=== PATIENT | female | born 1955 | race Caucasian/White ===

== ENCOUNTER 2016-06-16 18:43 | Emergency (ER) | payer MEDICARE ==
--- NOTE | 2016-06-16 20:06 | ED CLINICAL REPORT ---
Clinical Report - Physicians/Mid Levels [facility] [address] [place] [address] 06/16/2016 18:47 Patient: TY MENJIVAR Time Seen: 19:06; initial patient contact, initial documentation, patient care assumed. Arrived- By private vehicle. Historian- patient. HISTORY OF PRESENT ILLNESS Chief Complaint: EYE REDNESS. This started about 2 - 3 weeks ago, involves the right eye and is characterized as moderate in severity. The patient may have sustained an injury. She wears contact lenses. No eye pain, eye discharge, eye itching, eyelid swelling or photophobia. No blurred vision, double vision, decreased vision or loss of vision. Eye redness. ( when trying to get contact out, pinched or scratched eye, blood in eye has gotten worse, went to [facility], dx with sinusitis and periorbital hematoma and sent here for further eval of eye). REVIEW OF SYSTEMS All systems otherwise negative, except as recorded above. PAST HISTORY See nurses notes. The patient wears contact lenses. PROBLEMS: Rheumatoid Arthritis. --19:08 Bessie Suggs R.N. SOCIAL HISTORY Smoker- current status unknown (electronic cigarrette). Occasional alcohol use. History of occasional drug use: marijuana. FAMILY HISTORY No significant family medical history. ADDITIONAL NOTES The nursing notes have been reviewed with agreement regarding the chief complaint, HPI, ROS, PMH and patient medications and allergies. PHYSICAL EXAM Vital Signs: 06/16/2016 19:00 BP: 112/78. HR: 97. RR: 18. O2 saturation: 100%. Have been reviewed as normal and appear to be correct. Appearance: Alert. Oriented X3. No acute distress. HEENT: Ears normal. Nose normal. Pharynx normal. Head appears normal to external inspection. Rt Eye: Right eye exam normal. Single medium sized circular shaped corneal abrasion located centrally and inferiorly (around base of corneal 4-6 oclock position). Fluorescein dye uptake on the cornea. Eyes: Visual acuity noted- see nurse's notes. Right cornea examined with fluorescein stain. Eyelids appear normal to inspection. Conjunctivae and sclerae appear normal to inspection. Corneas do not appear normal to inspection. Pupils equal, round and reactive to light. Accommodation normal. Funduscopic exam normal. Visual briones normal. EOMs intact. Periorbital areas appear normal to inspection. Anterior chambers clear. Anterior chambers of normal depth. Lt Eye: Left eye exam normal. Neck: Neck supple. Normal inspection. Respiratory: No respiratory distress. Skin: No rash. Extremities: Extremities negative. Neuro: Oriented X 3. Mood/affect normal. No motor deficit. No sensory deficit. PROGRESS AND PROCEDURES Patient counseled in person regarding the patient's stable condition and diagnosis. 20:06. Differential Diagnosis: Other possible considerations: fb, corneal abrasion, conjunctivitis, keratitis, hyphema, globe injury. Above considerations are based on history and physical exam. Differential diagnosis was discussed with patient. Disposition: Discharged home in good and improved condition (20:06). Condition: good and stable. CLINICAL IMPRESSION Medium corneal abrasion to the left eye due to contact lens. No foreign body or rust ring. INSTRUCTIONS Warnings: GENERAL WARNINGS: Return or contact your physician immediately if your condition worsens or changes unexpectedly, if not improving as expected, or if other problems arise. Specifically return if problem worsens. Prescription Medications: Garamycin ophthalmic ointment 0.3% : Apply 1/2 inch to inner aspect of the lower lid on the affected eye every 8 hours for 1 week. Dispense three and one half (3.5) gm. No refills. Substitution is permissible. Follow-up: Follow up with an sap mobility architect tomorrow. Call for an appointment. Summary of care provided to patient. Understanding of the discharge instructions verbalized by patient. (Electronically signed by Candice Krishnan A.R.N.P. 06/16/2016 21:07)
--- NOTE | 2016-06-16 20:06 | ED CLINICAL REPORT ---
Clinical Report - Physicians/Mid Levels [facility] [address] [place] [address] 06/16/2016 18:47 Patient: TY MENJIVAR Time Seen: 19:06; initial patient contact, initial documentation, patient care assumed. Arrived- By private vehicle. Historian- patient. HISTORY OF PRESENT ILLNESS Chief Complaint: EYE REDNESS. This started about 2 - 3 weeks ago, involves the right eye and is characterized as moderate in severity. The patient may have sustained an injury. She wears contact lenses. No eye pain, eye discharge, eye itching, eyelid swelling or photophobia. No blurred vision, double vision, decreased vision or loss of vision. Eye redness. ( when trying to get contact out, pinched or scratched eye, blood in eye has gotten worse, [facility], dx with sinusitis and periorbital hematoma and sent here for further eval of eye). REVIEW OF SYSTEMS All systems otherwise negative, except as recorded above. PAST HISTORY See nurses notes. The patient wears contact lenses. PROBLEMS: Rheumatoid Arthritis. --19:08 Bessie Suggs R.N. SOCIAL HISTORY Smoker- current status unknown (electronic cigarrette). Occasional alcohol use. History of occasional drug use: marijuana. FAMILY HISTORY No significant family medical history. ADDITIONAL NOTES The nursing notes have been reviewed with agreement regarding the chief complaint, HPI, ROS, PMH and patient medications and allergies. PHYSICAL EXAM Vital Signs: 06/16/2016 19:00 BP: 112/78. HR: 97. RR: 18. O2 saturation: 100%. Have been reviewed as normal and appear to be correct. Appearance: Alert. Oriented X3. No acute distress. HEENT: Ears normal. Nose normal. Pharynx normal. Head appears normal to external inspection. Rt Eye: Right eye exam normal. Single medium sized circular shaped corneal abrasion located centrally and inferiorly (around base of corneal 4-6 oclock position). Fluorescein dye uptake on the cornea. Eyes: Visual acuity noted- see nurse's notes. Right cornea examined with fluorescein stain. Eyelids appear normal to inspection. Conjunctivae and sclerae appear normal to inspection. Corneas do not appear normal to inspection. Pupils equal, round and reactive to light. Accommodation normal. Funduscopic exam normal. Visual briones normal. EOMs intact. Periorbital areas appear normal to inspection. Anterior chambers clear. Anterior chambers of normal depth. Lt Eye: Left eye exam normal. Neck: Neck supple. Normal inspection. Respiratory: No respiratory distress. Skin: No rash. Extremities: Extremities negative. Neuro: Oriented X 3. Mood/affect normal. No motor deficit. No sensory deficit. PROGRESS AND PROCEDURES Patient counseled in person regarding the patient's stable condition and diagnosis. 20:06. Differential Diagnosis: Other possible considerations: fb, corneal abrasion, conjunctivitis, keratitis, hyphema, globe injury. Above considerations are based on history and physical exam. Differential diagnosis was discussed with patient. Disposition: Discharged home in good and improved condition (20:06). Condition: good and stable. CLINICAL IMPRESSION Medium corneal abrasion to the left eye due to contact lens. No foreign body or rust ring. INSTRUCTIONS Warnings: GENERAL WARNINGS: Return or contact your physician immediately if your condition worsens or changes unexpectedly, if not improving as expected, or if other problems arise. Specifically return if problem worsens. Prescription Medications: Garamycin ophthalmic ointment 0.3% : Apply 1/2 inch to inner aspect of the lower lid on the affected eye every 8 hours for 1 week. Dispense three and one half (3.5) gm. No refills. Substitution is permissible. Follow-up: Follow up with an airplane pilot photogrammetry tomorrow. Call for an appointment. Summary of care provided to patient. Understanding of the discharge instructions verbalized by patient. (Electronically signed by Candice Krishnan A.R.N.P. 06/16/2016 21:07)
--- NOTE | 2016-06-16 20:06 | ED NURSING NOTES ---
Clinical Report - Nurses [facility] [place] [address] [place] [address] 06/16/2016 18:47 Patient: TY MENJIVAR TRIAGE Triage time 19:00 Jun 16 2016. Acuity: LEVEL 4. Chief Complaint: INJURY TO RIGHT EYE. Alert. No acute distress. VISUAL ACUITY: Visual acuity performed with corrective lenses: left eye 20/25; right eye 20/40. --19:11 Bessie Suggs R.N. 19:00 06/16/16. BP: 112/78. HR: 97. RR: 18. O2 saturation: 100%. Pain level now 10. --19:11 Bessie Suggs R.N. Weight: 77.5 kg stated. Height/Length: 65 inches Per Patient. BMI: 28.5. --19:00 Bessie Suggs R.N. Medications OxyCONTIN Oral 30mg , 2x a day. --19:04 Bessie Suggs R.N. Melatonin Oral 10mg, as needed. --19:04 Bessie Suggs R.N. Adderall Oral 30mg (1 tab, TID ER). --19:05 Bessie Suggs R.N. Medication/allergy information source: the patient. --19:11 Bessie Suggs R.N. Allergies Sulfa Antibiotics.(hives) --19:07 Bessie Suggs R.N. History Arrived by private vehicle. Historian: patient. Primary physician ([facility] Adrienne). ( 1.5 week of right eye redness, thinks she may have caused some irritation when taking out her contact, however she has also done some heavy lifting. Concerned if a broken blood vessel or infection. Painful. 10/10.). Onset. (1.5 week). She may have sustained an injury. Treatment ORDERLIES TEACHER: None. SOCIAL HX: Smoker- current status unknown (Vape). Occasional alcohol use. History of drug use: marijuana. NUTRITIONAL RISK ASSESSMENT: The nutritional risk assessment revealed no deficiencies. FUNCTIONAL ASSESSMENT: Functional assessment: no impairments noted. LEARNING NEEDS ASSESSMENT: The learning needs assessment revealed no barriers. SKIN INTEGRITY ASSESSMENT: Skin integrity risk assessment completed. No skin integrity risk identified. --19: Bessie Suggs R.N. PROBLEMS: Rheumatoid Arthritis. --19: Bessie Suggs R.N. Interventions ID band on patient. To room. --: Bessie Suggs R.N. PHYSICAL ASSESSMENT Ambulatory to room. GENERAL / NEURO / PSYCH: Appears in no acute distress. --19: Bessie Suggs R.N. DISPOSITION / DISCHARGE Departure time: 2024. Condition at departure: unchanged. ( eye is still red). No learning barriers present. Discharge instructions provided and reviewed with the patient. Reviewed warnings. Reviewed medication(s). Treatments reviewed. Reviewed referral to an glass installer technician. Patient verbalized understanding. Written instructions provided in Tajik. The patient was discharged by the nurse practitioner. She was discharged home and accompanied by business analytics specialist. She left the Emergency Department ambulatory and via private vehicle. Statistical Reporting Analyst driving. --20:23 Emile Bass R.N. 20:22 06/16/16. BP: 116/75. HR: 91. RR: 15. O2 saturation: 100%. Pain level now 08/10. --20:23 Emile Bass R.N. Locked/Released at 06/16/2016 20:24 by Emile Bass R.N.
--- NOTE | 2016-06-16 20:06 | ED NURSING NOTES ---
Clinical Report - Nurses [facility] [place] [address] 06/16/2016 18:47 Patient: TY MENJIVAR TRIAGE Triage time 19:00 Jun 16 2016. Acuity: LEVEL 4. Chief Complaint: INJURY TO RIGHT EYE. Alert. No acute distress. VISUAL ACUITY: Visual acuity performed with corrective lenses: left eye 20/25; right eye 20/40. --19:11 Bessie Suggs R.N. 19:00 06/16/16. BP: 112/78. HR: 97. RR: 18. O2 saturation: 100%. Pain level now 10. --19:11 Bessie Suggs R.N. Weight: 77.5 kg stated. Height/Length: 65 inches Per Patient. BMI: 28.5. --19:00 Bessie Suggs R.N. Medications OxyCONTIN Oral 30mg , 2x a day. --19:04 Bessie Suggs R.N. Melatonin Oral 10mg, as needed. --19:04 Bessie Suggs R.N. Adderall Oral 30mg (1 tab, TID ER). --19:05 Bessie Suggs R.N. Medication/allergy information source: the patient. --19:11 Bessie Suggs R.N. Allergies Sulfa Antibiotics.(hives) --19:07 Bessie Suggs R.N. History Arrived by private vehicle. Historian: patient. Primary physician (PR[facility] Adrienne). ( 1.5 week of right eye redness, thinks she may have caused some irritation when taking out her contact, however she has also done some heavy lifting. Concerned if a broken blood vessel or infection. Painful. 10/10.). Onset. (1.5 week). She may have sustained an injury. Treatment COMPOSITION ROOFER: None. SOCIAL HX: Smoker- current status unknown (Vape). Occasional alcohol use. History of drug use: marijuana. NUTRITIONAL RISK ASSESSMENT: The nutritional risk assessment revealed no deficiencies. FUNCTIONAL ASSESSMENT: Functional assessment: no impairments noted. LEARNING NEEDS ASSESSMENT: The learning needs assessment revealed no barriers. SKIN INTEGRITY ASSESSMENT: Skin integrity risk assessment completed. No skin integrity risk identified. --19: Bessie Suggs R.N. PROBLEMS: Rheumatoid Arthritis. --19: Bessie Suggs R.N. Interventions ID band on patient. To room. --: Bessie Suggs R.N. PHYSICAL ASSESSMENT Ambulatory to room. GENERAL / NEURO / PSYCH: Appears in no acute distress. --19: Bessie Suggs R.N. DISPOSITION / DISCHARGE Departure time: 2024. Condition at departure: unchanged. ( eye is still red). No learning barriers present. Discharge instructions provided and reviewed with the patient. Reviewed warnings. Reviewed medication(s). Treatments reviewed. Reviewed referral to an physician executive. Patient verbalized understanding. Written instructions provided in Korean. The patient was discharged by the nurse practitioner. She was discharged home and accompanied by low raw sugar cutter. She left the Emergency Department ambulatory and via private vehicle. Automobile Mechanic Apprentice driving. --20:23 Emile Bass R.N. 20:22 06/16/16. BP: 116/75. HR: 91. RR: 15. O2 saturation: 100%. Pain level now 08/10. --20:23 Emile Bass R.N. Locked/Released at 06/16/2016 20:24 by Emile Bass R.N.
--- NOTE | 2016-06-16 21:07 | ED MED RECONCILIATION SUMMARY ---
Patient: TY MENJIVAR Medication Reconciliation Report [facility] VisitID: [id number] [address] [place] [address] 60y, F Registration Date/Time: 06/16/2016 Weight: 77.5 kg Height/Length: 65 in. BMI: 28.5 ALLERGIES: Sulfa Antibiotics The patient's Home Medications are listed below: THE FOLLOWING MEDICATIONS NEED TO BE RECONCILED: Adderall Oral 30mg , 1 tab, TID ER Melatonin Oral 10mg OxyCONTIN Oral 30mg , 2x a day The source(s) of the original Home Medication information: patient The following Medications were given to the patient in the Emergency Department: None. The following Medications were prescribed to the patient: Garamycin ophthalmic ointment 0.3% : Apply 1/2 inch to inner aspect of the lower lid on the affected eye every 8 hours for 1 week. Dispense three and one half (3.5) gm. No refills. Substitution is permissible. -- Candice Krishnan A.R.N.P.
--- NOTE | 2016-06-16 21:07 | ED MED RECONCILIATION SUMMARY ---
Patient: TY MENJIVAR Medication Reconciliation Report [facility] VisitID: [id number] [address] [place] [address] 60y, F Registration Date/Time: 06/16/2016 Weight: 77.5 kg Height/Length: 65 in. BMI: 28.5 ALLERGIES: Sulfa Antibiotics The patient's Home Medications are listed below: THE FOLLOWING MEDICATIONS NEED TO BE RECONCILED: Adderall Oral 30mg , 1 tab, TID ER Melatonin Oral 10mg OxyCONTIN Oral 30mg , 2x a day The source(s) of the original Home Medication information: patient The following Medications were given to the patient in the Emergency Department: None. The following Medications were prescribed to the patient: Garamycin ophthalmic ointment 0.3% : Apply 1/2 inch to inner aspect of the lower lid on the affected eye every 8 hours for 1 week. Dispense three and one half (3.5) gm. No refills. Substitution is permissible. -- Candice Krishnan A.R.N.P.
--- NOTE | 2016-06-16 21:07 | ED MAR SUMMARY ---
..... Medication Administration Record [facility] [address] [place], [place] [id number] Patient: TY MENJIVAR Visit ID: [id number] 60y, F Weight: 77.5 kg Height/Length: 65 in BMI: 28.5 ALLERGIES: Sulfa Antibiotics
--- NOTE | 2016-06-16 21:07 | ED MAR SUMMARY ---
..... Medication Administration Record [facility] [address] [place], [place] [id number] Patient: TY MENJIVAR Visit ID: [id number] 60y, F Weight: 77.5 kg Height/Length: 65 in BMI: 28.5 ALLERGIES: Sulfa Antibiotics
--- NOTE | 2016-06-16 21:07 | ED DISCHARGE INSTRUCTIONS ---
Patient: TY MENJIVAR General Instructions [facility] VisitID: [id number] [place] [address] 60y, F Registration Date/Time: 06/16/2016 Medium corneal abrasion to the left eye due to contact lens. No foreign body or rust ring. INSTRUCTIONS Warnings: GENERAL WARNINGS: Return or contact your physician immediately if your condition worsens or changes unexpectedly, if not improving as expected, or if other problems arise. Specifically return if problem worsens. Prescription Medications: Garamycin ophthalmic ointment 0.3% : Apply 1/2 inch to inner aspect of the lower lid on the affected eye every 8 hours for 1 week. Dispense three and one half (3.5) gm. No refills. Substitution is permissible. Follow-up: Follow up with an shadowgraph operator tomorrow. Call for an appointment. Summary of care provided to patient. Understanding of the discharge instructions verbalized by patient. ADDITIONAL INFORMATION Corneal Abrasion The cornea is the clear part in the front of the eye. This sensitive area is very painful when injured. There may be tearing and your vision may be blurry until healing occurs. You may be sensitive to light. This part of the body heals quickly. You can expect the pain to go away within 24-48 hours. If the abrasion is large or deep, your doctor may apply an eye patch, although this is not always done. An antibiotic ointment or eye drops may also be used to prevent infection. Numbing drops may be used to relieve the pain temporarily so that your eyes can be examined. However, these drops cannot be prescribed for home use because that would slow down the healing process. Also, if you cant feel your eye, there is a chance of accidentally injuring your eye further without knowing it. Home Care: A cold pack (ice in a plastic bag, wrapped in a towel) may be applied over the eye (or eyepatch) for 20 minutes at a time, to reduce pain. You may use acetaminophen (Tylenol) or ibuprofen (Motrin, Advil) to control pain, unless another pain medicine was prescribed. [NOTE: If you have chronic liver or kidney disease or ever had a stomach ulcer or GI bleeding, talk with your doctor before using these medicines.] Rest your eyes and do not read until symptoms are gone. If you use contact lenses, do not wear them until all symptoms are gone. If your vision is affected by the corneal abrasion or if an eyepatch was applied, DO NOT DRIVE a motor vehicle or operate machinery until all symptoms are gone. Otherwise, you would have trouble judging distances with only one eye. If your eyes are sensitive to light, try wearing sunglasses, or stay indoors, until symptoms go away. Follow Up as advised by our staff. Serious abrasions may be referred to an research and development specialist (shadowgraph operator). If no patch was used but the pain continues for more than 48 hours, you should have another exam. Return to this facility or contact the referral doctor to arrange this. If your eye was patched and if you were asked to remove the patch yourself, see your doctor or return to this facility if your pain is still present after the patch is removed. If you were given a return appointment for patch removal and re-exam, do not miss this. It could be harmful if the patch remains in place longer than advised. Get Prompt Medical Attention if any of the following occur: Increasing eye pain or pain that does not improve after 24 hours Discharge from the eye Increasing redness of the eye or swelling of the eyelids Your vision gets worse You have been given the following additional information: Corneal Abrasion (Electronically signed by Candice Krishnan A.R.N.P. 06/16/2016 21:07)
--- NOTE | 2016-06-16 21:07 | ED DISCHARGE INSTRUCTIONS ---
Patient: TY MENJIVAR General Instructions [facility] VisitID: [id number] [place] [address] 60y, F Registration Date/Time: 06/16/2016 Medium corneal abrasion to the left eye due to contact lens. No foreign body or rust ring. INSTRUCTIONS Warnings: GENERAL WARNINGS: Return or contact your physician immediately if your condition worsens or changes unexpectedly, if not improving as expected, or if other problems arise. Specifically return if problem worsens. Prescription Medications: Garamycin ophthalmic ointment 0.3% : Apply 1/2 inch to inner aspect of the lower lid on the affected eye every 8 hours for 1 week. Dispense three and one half (3.5) gm. No refills. Substitution is permissible. Follow-up: Follow up with an brake operator helper tomorrow. Call for an appointment. Summary of care provided to patient. Understanding of the discharge instructions verbalized by patient. ADDITIONAL INFORMATION Corneal Abrasion The cornea is the clear part in the front of the eye. This sensitive area is very painful when injured. There may be tearing and your vision may be blurry until healing occurs. You may be sensitive to light. This part of the body heals quickly. You can expect the pain to go away within 24-48 hours. If the abrasion is large or deep, your doctor may apply an eye patch, although this is not always done. An antibiotic ointment or eye drops may also be used to prevent infection. Numbing drops may be used to relieve the pain temporarily so that your eyes can be examined. However, these drops cannot be prescribed for home use because that would slow down the healing process. Also, if you cant feel your eye, there is a chance of accidentally injuring your eye further without knowing it. Home Care: A cold pack (ice in a plastic bag, wrapped in a towel) may be applied over the eye (or eyepatch) for 20 minutes at a time, to reduce pain. You may use acetaminophen (Tylenol) or ibuprofen (Motrin, Advil) to control pain, unless another pain medicine was prescribed. [NOTE: If you have chronic liver or kidney disease or ever had a stomach ulcer or GI bleeding, talk with your doctor before using these medicines.] Rest your eyes and do not read until symptoms are gone. If you use contact lenses, do not wear them until all symptoms are gone. If your vision is affected by the corneal abrasion or if an eyepatch was applied, DO NOT DRIVE a motor vehicle or operate machinery until all symptoms are gone. Otherwise, you would have trouble judging distances with only one eye. If your eyes are sensitive to light, try wearing sunglasses, or stay indoors, until symptoms go away. Follow Up as advised by our staff. Serious abrasions may be referred to an camp recreation specialist (brake operator helper). If no patch was used but the pain continues for more than 48 hours, you should have another exam. Return to this facility or contact the referral doctor to arrange this. If your eye was patched and if you were asked to remove the patch yourself, see your doctor or return to this facility if your pain is still present after the patch is removed. If you were given a return appointment for patch removal and re-exam, do not miss this. It could be harmful if the patch remains in place longer than advised. Get Prompt Medical Attention if any of the following occur: Increasing eye pain or pain that does not improve after 24 hours Discharge from the eye Increasing redness of the eye or swelling of the eyelids Your vision gets worse You have been given the following additional information: Corneal Abrasion (Electronically signed by Candice Krishnan A.R.N.P. 06/16/2016 21:07)
== END 2016-06-16 20:25 | disposition home or self-care (01) ==
LOC: ED SRH 18:43
DX: H18.822 Corneal disorder due to contact lens, left eye (principal); F17.210 Nicotine dependence, cigarettes, uncomplicated